=== PATIENT | male | born 1945 | race Caucasian/White ===

== ENCOUNTER 2016-04-19 22:17 | Emergency (ER) | payer MEDICARE ==
[2016-04-19] MEDS ORDERED: Aspirin Low Dose CHEW TAB* 81 MG PO ONE (22:53)
[2016-04-19] MEDS ORDERED: Iodixanol* (CONTRAST) 320 MG/ML 100 ML SDV IV ONE (23:07)
[2016-04-19] MEDS ORDERED: Morphine INJ* 4 MG/ML 1 ML CARPUJECT IV ONE (23:20)
[2016-04-19] MEDS ORDERED: Ondansetron INJ* 2 MG/ML VIAL IV ONE (23:20)
[2016-04-19 23:22] LABS: Albumin 3.4 g/dL (3.2-5.2); BUN/Creatinine Ratio 41.3 (8-20); Calcium 8.1 mg/dL (8.6-10.3); EGFR African American 132.4 (>60); Globulin 2.7 g/dL (2-4); Potassium 3.4 mmol/L (3.5-5.0); Total Bilirubin 0.4 mg/dL (0.2-1.0); Total Protein 6.1 g/dL (6.4-8.9)
[2016-04-19] MEDS ORDERED: HYDROmorphone INJ* 2 MG/ML CARPUJECT SYRINGE IV SLOW PU ONE (23:24)
[2016-04-19 23:26] LABS: Comments Flag Yes; Hematocrit 15 % (42-52); Mean Corpuscular HGB Conc 31 g/dl (31-36); Mean Corpuscular Hemoglobin 22 pg (27-31); Mean Corpuscular Volume 71 fL (80-94); Mean Platelet Volume 7 um3 (7.4-10.4); Red Blood Count 2.17 10^6/ul (4.0-5.4); Red Cell Distribution Width 18 % (10.5-15); White Blood Count 6.5 10^3/ul (3.5-10.8)
[2016-04-19 23:27] LABS: Add Diff/Slide Review? Slide Review Added; Hemoglobin 4.8 g/dl (14.0-18.0); Troponin I 0.06 ng/mL (<0.04)
[2016-04-19] MEDS ORDERED: NS 0.9% 1000 ML* 1,000 ML IV ONE (23:27)
[2016-04-19] MEDS ORDERED: Pantoprazole IV* 80 MG in NS 0.9% 250 ML* 250 ML IVPB SCH (23:45)
[2016-04-19] MEDS ORDERED: Pantoprazole IV* 40 MG IV ONE (23:46)
[2016-04-19 23:48] LABS: Hypochromasia 1+; Macrocytosis 1+; Microcytosis 1+; Polychromasia 1+; Spherocytes 1+; Target Cells 1+
[2016-04-19 23:49] LABS: Add Path Review? YES
[2016-04-20] MEDS ORDERED: Phytonadione INJ (Adult)* 10 MG/ML 1 ML AMP IV ONE (00:29)
--- NOTE | 2016-04-20 00:54 | ED ---
Arslan Martin Anna, scribed for Grover Marshall MD on 04/19/16 at 2255 . HPI Chest Pain - HPI Summary HPI Summary: Patient is a 71 y/o male coming to [facility] presenting with diffuse chest pain that began four days ago. The pain radiates to his back. Sitting down alleviates the pain somewhat. The pain is exacerbated when he stands up or walks around. It was worse today. He additionally reports SOB. He takes Vicodin for his back pain, which makes him constipated. He has been eating and drinking normally. Denies CAD, DM, HTN, HLD, stents, or bypass surgery. - History of Current Complaint Chief Complaint: EDChestPainROMI Hx Obtained From: Patient Pain Intensity: 10 Pain Scale Used: 0-10 Numeric - Allergy/Home Medications Allergies/Adverse Reactions: Allergies Allergy/AdvReac Type Severity Reaction Status Date / Time Morphine Allergy Mild Shakes Verified 04/27/12 23:13 PMH/Surg Hx/FS Hx/Imm Hx Endocrine/Hematology History: Reports: Hx Anticoagulant Therapy Cardiovascular History: Denies: Hx Coronary Artery Disease Musculoskeletal History: Reports: Other Musculoskeletal History - chronic back pain Neurological History: Reports: Hx Dementia - Surgical History Surgery Procedure, Year, and Place: tonsilectomy. steal malaika in spine. artificial heart valve Infectious Disease History: No Infectious Disease History: Denies: Hx Clostridium Difficile, Hx Hepatitis, Hx Human Immunodeficiency Virus (HIV), Hx of Known/Suspected MRSA, Hx Shingles, Hx Tuberculosis, Hx Known/ Suspected VRE, Hx Known/Suspected VRSA, History Other Infectious Disease, Traveled Outside the [place] in Last 30 Days - Family History Known Family History: Negative: Diabetes - Social History Occupation: Retired Lives: With Family Alcohol Use: None Substance Use Type: Reports: None Smoking Status (MU): Former Smoker Type: Cigarettes Amount Used/How Often: 10 years Have You Smoked in the Last Year: No Review of Systems Negative: Fever, Chills Negative: Erythema Negative: Sore Throat Positive: Chest Pain Positive: Shortness Of Breath. Negative: Cough Negative: Abdominal Pain, Vomiting, Nausea Positive: other - constipation. Negative: dysuria, hematuria Positive: Myalgia. Negative: Edema Negative: Rash Neurological: Other - Denies dizziness All Other Systems Reviewed And Are Negative: Yes Physical Exam - Summary Physical Exam Summary: Constitutional: Well-developed, Well-nourished, Alert. (-) Distressed Skin: Warm, Dry HENT: Normocephalic; Atraumatic Eyes: Conjunctiva normal Neck: Musculoskeletal ROM normal neck. (-) JVD, (-) Stridor, (-) Tracheal deviation Cardio: Rhythm regular, rate normal, Heart sounds normal; Intact distal pulses; The pedal pulses are 2+ and symmetric. Radial pulses are 2+ and symmetric. Grade 3 systolic murmur. Pulmonary/Chest wall: Effort normal. (-) Respiratory distress, (-) Wheezes, (-) Rales Abd: Soft, (-) Tenderness, ~(-) Distension, (-) Guarding, (-) Rebound Musculoskeletal: (-) Edema Lymph: (-) Cervical adenopathy Neuro: Alert, Oriented x3 Psych: Mood and affect Normal Triage Information Reviewed: Yes Vital Signs On Initial Exam: Initial Vitals Temp Pulse Resp BP Pulse Ox 98.0 F 97 26 118/76 99 04/19/16 22:38 04/19/16 22:38 04/19/16 22:38 04/19/16 22:38 04/19/16 22:38 Vital Signs Reviewed: Yes Diagnostics - Vital Signs Vital Signs Temp Pulse Resp BP Pulse Ox 04/19/16 22:38 98.0 F 97 26 118/76 99 - Laboratory Result Diagrams: 04/19/16 22:45 04/19/16 22:45 Lab Statement: Any lab studies that have been ordered have been reviewed, and results considered in the medical decision making process. - EKG 22:26 Cardiac Rate: NL - 99 bpm EKG Interpretation: RBBB, ST elevation in aVR, ST depression in V4-V6 22:46 Cardiac Rate: NL - 98 bpm EKG Rhythm: Sinus Rhythm EKG Interpretation: LBBB, no STEMI Re-Evaluation - Re-Evaluation First Eval Re-Evaluation Time: 23:47 Change: Unchanged - Discussed results and plan of care with patient. Patient agrees with plan. Second Eval Re-Evaluation Time: 00:40 Change: Improved - CP resolved at this time. BP 100 systolic. Chest Pain Course/Dx - Course Assessment/Plan: Patient is a 71 y/o male coming to [facility] presenting with diffuse chest pain that began four days ago. The pain radiates to his back. Labs reveal hemoglobin level of 4.8 and Troponin of 0.06. EKG revealed RBBB, ST elevation in aVR, and ST depression in V4-V6. CT reveals acute GI bleed. GI not available at [facility]. [facility] be [facility] under care of Dr. Gibbons. - Diagnoses Provider Diagnoses: Acute GI bleeding, Symptomatic anemia, Severe anemia - Provider Notifications Discussed Care Of Patient With: Dr. Michael (hha) at 23:22. EKG is unremarkable except for new LBBB. If concerned for CP, this could be [place]. Dr. Freeman (hospitalist) at 23:45. Pt needs to be transferred due to no GI coverage at [facility] [place] Gibbons ([facility] agrees to accept patient at 23:52. Reason For Transfer: Specialty or service not available at [facility]. - Critical Care Time Critical Care Time: 30-74 min Discharge - Discharge Plan Condition: Fair Disposition: TRANS HIGHER LVL OF CARE FAC Referrals: Chucky Wiseman MD [Primary Care Provider] - The documentation as recorded by the Arslan espinoza Anna accurately reflects the service I personally performed and the decisions made by Joanna king Jerry, MD.
[2016-04-20 01:28] VITALS: BP 96/64
--- NOTE | 2016-04-20 08:31 | RAD ---
Indication: Chest pain, aortic dissection. CTA of the chest and abdomen was performed after IV contrast administration. No oral contrast was given. A total of Administered 100.0 ml of VISAPAQUE 320 mgi/ml intravenously without adverse reaction. Coronal and sagittal reconstructed images were obtained. The ascending aorta demonstrates mild fusiform dilatation measuring up to 4.9 cm in AP dimension. Atherosclerosis and a tortuous aortic arch is noted. Descending aorta measures 3.6 cm. No evidence of aortic dissection is noted. The abdominal aorta demonstrates no evidence of aneurysmal dilatation or aortic dissection. Common iliac artery is otherwise unremarkable. The pulmonary arterial tree demonstrates no evidence of filling defects to suggest pulmonary embolus. There is precarinal lymphadenopathy measuring up to 11 mm. Right paratracheal lymph nodes are noted measuring up to 12 mm. AP window lymph nodes measuring up to 9 mm is noted. Right hilar lymph nodes measuring up to 18 mm in left hilar lymph nodes measuring up to 13 mm is noted. The lung hobbs demonstrate dependent changes in the lung bases. No evidence of alveolar consolidation is noted. No nodules are identified. CT of the abdomen was performed. The liver is normal in size. There is a low density lesion in the inferior anterior right lobe of liver measuring up to 2 cm. This is of uncertain etiology. I cannot exclude a hemangioma or cyst. Other lesions are not excluded. Correlation with ultrasound may be helpful. The spleen is normal in size. The gallbladder demonstrates no calcified gallstones, pericholecystic fluid or wall thickening. Common duct is not dilated. Pancreas demonstrates no mass or pancreatic ductal dilatation. No adrenal lesions are noted. The kidneys demonstrate symmetric nephrograms without focal lesions. No retroperitoneal lymphadenopathy is noted. No dilated loops of bowel are noted. Atherosclerotic aorta without evidence of aneurysmal dilatation is noted. Small periumbilical hernia is noted containing omentum. No evidence of bowel herniation is present. IMPRESSION: FUSIFORM DILATATION OF THE ASCENDING AORTA HOWEVER THERE IS NO EVIDENCE OF AORTIC DISSECTION. ATHEROSCLEROTIC AORTA IS NOTED. NO EVIDENCE OF PULMONARY EMBOLI IS NOTED. THERE IS A 2 CM LOW-DENSITY LESION IN THE ANTERIOR RIGHT LOBE OF LIVER IN THE INFERIOR TIP FOR WHICH FURTHER EVALUATION IS SUGGESTED SUCH HEPATIC ULTRASOUND. MILD MEDIASTINAL AND HILAR ADENOPATHY IS NOTED OF UNCERTAIN ETIOLOGY. SMALL PERIUMBILICAL HERNIA CONTAINING OMENTUM.
== END 2016-04-20 01:26 | disposition short-term general hospital (02) ==
LOC: ED 22:17
DX: K92.2 Gastrointestinal hemorrhage, unspecified (principal); D64.9 Anemia, unspecified; R07.9 Chest pain, unspecified; R06.02 Shortness of breath; Z87.891 Personal history of nicotine dependence; M79.1 Myalgia
CPT/HCPCS: 36415; 71275; 74175; 80053; 83605; 84484; 85025; 85060; 85610; 85730; 86850; 86900; 86901; 86922; 86927; 93005; 96374; 96375; 99284; A9270-GY; J1170; J2405; J3430; P9017; P9040; Q9967

== ENCOUNTER 2017-07-27 12:23 | Observation (INO) | payer MEDICARE ==
[2017-07-27] MEDS ORDERED: NS 0.9% 1000 ML* 1,000 ML IV SCH (12:30)
--- NOTE | 2017-07-27 13:29 | RAD ---
INDICATION: Shortness of breath. COMPARISON: Comparison is made with prior chest x-ray study from September 22, 2011. TECHNIQUE: A portable view of the chest was obtained. FINDINGS: The patient is status poststernotomy and cardiac valve surgery. The heart appears mildly enlarged. There is diffuse prominence of the interstitial markings and bilateral alveolar infiltrates most consistent with congestive heart failure or pneumonia. IMPRESSION: BILATERAL INTERSTITIAL AND ALVEOLAR INFILTRATES MOST CONSISTENT WITH CONGESTIVE HEART FAILURE OR PNEUMONIA.
[2017-07-27 13:39] LABS: INR 1.54 (0.77-1.02)
[2017-07-27 13:42] LABS: Hematocrit 30 % (42-52); Hemoglobin 9.9 g/dl (14.0-18.0); Mean Corpuscular HGB Conc 33 g/dl (31-36); Mean Corpuscular Hemoglobin 26 pg (27-31); Mean Corpuscular Volume 80 fL (80-94); Mean Platelet Volume 8.5 um3 (7.4-10.4); Platelet Count 202 10^3/ul (150-450); Red Blood Count 3.73 10^6/ul (4.0-5.4); Red Cell Distribution Width 18 % (10.5-15); White Blood Count 12.7 10^3/ul (3.5-10.8)
[2017-07-27 13:47] LABS: EGFR Non-African American 36.9 (>60)
[2017-07-27] MEDS ORDERED: fentaNYL* 50 MCG/ML 2 ML VIAL (100 MCG VIAL) IV SLOW PU ONE (13:57)
[2017-07-27 14:12] LABS: ABS Basophils 0 10^3/ul (0-0.2); ABS Eosinophils 0 10^3/ul (0-0.6); ABS Lymphocytes 0.8 10^3/ul (1.0-4.8); ABS Monocytes 0.8 10^3/ul (0-0.8); ABS Neutrophils 11.2 10^3/ul (1.5-7.7); ABS Nucleated RBC 0.1 10^3/ul; Eosinophil % 0 % (0-6); Lymphocyte % 5.9 % (25-47)
[2017-07-27] MEDS ORDERED: HYDROmorphone INJ* 1 MG/ML CARPUJECT SYRINGE IV ONE (15:04)
[2017-07-27] MEDS ORDERED: HYDROmorphone INJ* 2 MG/ML CARPUJECT SYRINGE IV SLOW PU ONE (15:39)
[2017-07-27] MEDS ORDERED: Ondansetron ODT TAB* 4 MG SL PRN (15:40)
[2017-07-27] MEDS ORDERED: Haloperidol INJ IV/IM* 5 MG/ML AMP IV SLOW PU PRN (15:40)
[2017-07-27] MEDS ORDERED: HYDROmorphone INJ* 2 MG/ML CARPUJECT SYRINGE IV ONE (16:00)
--- NOTE | 2017-07-27 16:07 | CONSULT ---
Consult Consult: CRITICAL CARE MEDICINE DATE: 07/27/17 TIME: 1525 PRIMARY CARE PROVIDER: Ivone REFERRING PROVIDER: Akosua REASON/CHIEF COMPLAINT: MSOF HISTORY OF PRESENT ILLNESS: 72 M with advanced dementia and from details from patients alternative proxy at bedside, pt with significant refusal of medical therapy in the distant and recent past still consistent with his rainer care. He follows with Dr. Wiseman and Dr. South has spoken with him in these regards as pt now presents from home after poor responsiveness all morning and c/o severe abd pain. Pt recently hospitalized at [facility] and sent home as he declined care. has been his anatomic pathologist it sounds like and his wishes have been multiple times to refuse care and leave ama. She declines to be his proxy at this time given pts back and forth nature as his daughter, his now current proxy because of decline, as pt when in hospital wants to go home and when at home always ill enough to return to hospital. They have never seen him this bad. Upon entering room: His eyes are closed. He looks older then age. He looks acutely ill with prolonged forced exhalation phase. He is warm but dry. He awakens and can follow a few commands but in pain. Has significant abd pain more localized to right side on exam with peritoneal signs, without invol guarding however. He is labored on 4L with sats holding. He has coarse rales on Left> Right, probably aspirated. Hr 90s. MM dry. Pupils reactive. Whne questioning him, dementia features present and does not have capacity. REVIEW OF SYSTEMS: As per HPI. PAST MEDICAL HISTORY: Reviewed with admitting hospitalist and family. MEDICATIONS: Reviewed per records. ALLERGIES: Morphine hives. SOCIAL HISTORY: . FAMILY HISTORY: Noncontributory at present. LABS: Reviewed. IMAGING: Reviewed. MEDICATIONS: Reviewed. ASSESSMENT: 72 M Septic/metabolic encephalopathy Acute hypoxic leading towards hypercarbic respiratory failure Acute abdomen and abd sepsis acting like a perforated viscous vs ischemic. Acute transaminitis. Underlying known liver mass. Acute renal failure on chronic Metabolic acidosis with lactic acidosis on admission Hyponatremia and metabolic derangement Coagulopathy Anemia. PLAN: D/w pts daughter and family members at bedside. We discussed diagnosis as above, but less confirmative given lack of CT scan. We discussed rationale of obtaining CT scan to help with dx and px. Discussed potential abd ddx and how some things could require surgery which they would decline and some things could just require medical management and we went through some specifics. She states pt and they wouldnt even want that. We did discuss his msof and risk for this hospitalization with or without medical care. He needs medication for pain currently. He will not be able to maintain resp status as his wob is quite high. His hemodynamics are going to collapse as well and his metabolic demands are increasing. She expressed understanding and speaks for him. Will start getting him comfortable. Only comfort care. Try dilaudid now. Morphine allergy with hives. May need to use if unable to satisfy or use Benadryl with if needed too. Fent prn may work for now and try that too. Ativan prn. Can remove O2 to ra when comfortable. Disposition: D/w Hospitalist, admit to floor on their service. Code Status: Comfort care Critical Care Time: 35min Ricarda Diez, DO
[2017-07-27 17:11] VITALS: BP 115/50
[2017-07-27] MEDS: fentaNYL* 50 MCG/ML 2 ML VIAL (100 MCG VIAL) IV SLOW PU PRN ×2 (18:31→19:28)
[2017-07-27] MEDS: LORazepam INJ* 2 MG/ML 1 ML VIAL IV PUSH PRN ×2 (19:28→22:53)
[2017-07-27] MEDS ORDERED: fentaNYL PCA* 20 ML PCA SCH (20:00)
--- NOTE | 2017-07-27 21:54 | HP ---
CC: Dr. Wiseman; Dr. Diez * HISTORY AND PHYSICAL: DATE OF ADMISSION: 07/27/17 PRIMARY CARE PROVIDER: Dr. Wiseman. CHIEF COMPLAINT: Abdominal pain, requested comfort care. HISTORY OF PRESENT ILLNESS: Jim Dickerson is a 72-year-old male with history of dementia, depression with psychotic features and episodes of agitation in the past, who has had problems with GI issues for the past several weeks. On , he was seen by Dr. Wiseman and was noted to have GI bleed. He came into [facility] and was supposed to have an upper endoscopy performed, but he was transferred to [facility] and eventually refused to have it performed and left against medical advice. The patient has history of arteriovenous malformations and bleeding in the past. As per family present in the room, the patient went to [facility] a couple of times more. The last time was on 07/23/17 when he complained of abdominal pain. At that point, he was noted to have a CT of the abdomen which showed thoracic aortic aneurysm at 6 cm and 2.5 cm of liver mass as well as a mass in the spleen. The family stated that he got angry and decided not to be admitted and requested for the family to take him back home. Family also mentioned that the patient has history of "water on the lungs." Apparently after coming back home from the hospital, he had been feeling more ill and complaining of more abdominal pain. Several times in the past several weeks, he had voiced to the family that he prefers to and he does not want to come to the hospital anymore. Today, the patient was brought in by ambulance crew who noted that the patient was moaning in pain with labored breathing. The family wanted to place the patient in hospice care at that point. He came into the emergency department with the family requesting comfort care. We had some basic lab work obtained which shows multiorgan system failure, shock liver with marked metabolic acidosis and acute renal failure, and hyponatremia. I spoke with the family that the patient will require to have a CAT scan done to evaluate for possibility of abdominal pathology and likely ischemic bowel or perforation. The patient's healthcare proxy present in the room, his daughter, Corrine, stated that the patient would never wish to have that done and she refused for the patient to have the CAT scan performed. I also attempted to contact the patient's , Tara Dickerson, who was not available. The patient's family stated that Tara did not come to the hospital since she did not want to deal with the hospitals anymore and that she agreed with the comfort care orders. I also discussed the case with Dr. Wiseman, patient's primary care provider who thought that the patient does not have a diagnosis of terminal illness. Nevertheless, after discussion with Dr. Diez at this point when the patient has multiorgan failure, his mortality is high. At this point, the patient's family and healthcare proxies requested for the patient to be placed comfort care. The working diagnosis is likely bowel perforation or ischemic bowel. The patient is going to be placed on comfort care orders only according to the family's wishes. PAST MEDICAL HISTORY: Obtained from medical records as the patient is nonverbal , includes: 1. Status post aortic valve replacement x2. 2. History of major depressive disorder with psychotic features and agitation in the past. 3. History of dementia. 4. History of hypercholesterolemia. 5. History of acoustic neuroma. 6. BPH. 7. History of AVMs and GI bleeds due to that. 8. History of chronic lower back pain. 9. History of ulcerative colitis. 10. History of coronary artery bypass grafting. 11. History of seizure disorder. 12. History of breast surgery in the past and I believe that was a fine needle aspiration of an abnormality on the breast that turned out to be benign. MEDICATIONS: At home include: 1. Senna 2 tablets daily. 2. Seroquel 100 mg at bedtime. 3. MiraLAX 17 g daily. 4. Remeron 30 mg at bedtime. 5. Lamictal 200 mg at bedtime. 6. Hydrocodone/acetaminophen 5/325 mg 1 tablet every 4 hours p.r.n. 7. Ferrous sulfate 325 mg daily. 8. Pepcid 40 mg daily. 9. Soma 350 mg 3 times a day p.r.n. 10. Aspirin 325 mg daily. FAMILY HISTORY: Father with history of heart disease. Sister with history of melanoma and metastasis. One child with Tourette's. SOCIAL HISTORY: The patient has a history of [id number] smoking, quit in 1976. There is no history of alcohol or drug use. REVIEW OF SYSTEMS: Unobtainable from the patient. From the patient's family members, the patient had been complaining of abdominal pain for several weeks now. He has not eaten anything today. He had been moaning for the past 2 days. He did not wish to be in the hospital anymore and he did not wish to be further treated as per patient's family members. Apparently, he has not had a bowel movement for several days. PHYSICAL EXAMINATION GENERAL: The patient is a 72-year-old male who is lying in bed, appears uncomfortable, moaning all the time. He is otherwise nonverbal. VITAL SIGNS: Blood pressure of 119/59, heart rate of 80 and regular, respiratory rate 25, oxygen saturation 95% on 4 L of oxygen nasal cannula, temperature 98.1. HEENT: Head: Atraumatic, normocephalic. Eyes: Pupils are equal and reactive to light and accommodation. Oropharynx clear. Mucosa dry. NECK: Supple. No JVD. No bruits bilaterally. RESPIRATORY: Rales in bilateral lower to mid lungs. CARDIOVASCULAR: Regular rate and rhythm with 2/6 systolic ejection murmur noted on auscultation of the right upper sternal border. ABDOMEN: Very protuberant, markedly distended. Soft, markedly tender in the right upper and right lower quadrants with no rebound, no guarding. Bowel sounds are very hypoactive and high pitched noted in the bilateral upper quadrants of the abdomen. EXTREMITIES: There is +2 pitting pedal edema bilaterally. There is no clubbing and no cyanosis. NEURO EVALUATION: The patient is currently nonverbal, encephalopathic, moaning from pain. He moves all his 4 extremities spontaneously without evidence of focal abnormality. DIAGNOSTIC STUDIES/LAB DATA: Showed lactic acid of 2.8. Sodium of 125, potassium 5.3, chloride 90, carbon dioxide 20, BUN 97, creatinine 1.87. Anion gap was 15. Glucose of 130. Total bilirubin of 2.2, AST of 683, ALT of 686, alkaline phosphatase of 382. Troponin of 0.13. Brain natriuretic peptide was 1494. Total CPK of 558. C-reactive protein of 296. TSH of 2.2. White blood cell count 12.7, hemoglobin 9.9, hematocrit 30, and platelets 202,000. Portable chest x-ray showed "bilateral interstitial and alveolar infiltrates most consistent with congestive heart failure or pneumonia." ASSESSMENT AND PLAN: 1. The patient appears to be in multiorgan system failure with high mortality at this point. Due to the patient's history of dementia and behavioral disturbances and worsening memory in the past several months to years, the present healthcare proxy, his daughter, Corrine, requested for the patient to be comfort care. Corrine and her present in the room requested for the patient not to have further investigations including CAT scan of the abdomen. At this point, the differential of the patient's underlying pathology is likely bowel ischemia or bowel perforation, for which further consent would have to be obtained for possibility of surgical intervention which the family would not consent to. At this point after consulting the rn bsn, Dr. Diez, the patient is going to be placed on comfort care orders utilizing fentanyl, atropine for comfort orders. I am going to ask [facility] consultant, Dr. Malik , to see the patient for further evaluation in the future. 2. For DVT prophylaxis, the patient is on comfort care orders only. 3. The patient's code status is do not resuscitate, do not intubate, and comfort care. TIME SPENT: Approximately 85 minutes were spent on admission of this patient, more than half that time was spent [id number] with the patient and the patient 's family in the patient's room, managing the patient's complicated case. [id number] #: [id number]
--- NOTE | 2017-07-27 22:54 | ED ---
Jessica Martin Nilda, scribed for Ajit Vargas MD on 07/27/17 at 1256 . Altered Mental Status - HPI Summary HPI Summary: LVL 5 Caveat: Hx and PE limited due to Dementia and AMS. This patient is a 72 year old M presenting to [facility] accompanied by EMS with a chief complaint of constant AMS since yesterday that worsened today, per EMS. Pt was D/C from [facility] 4 days ago. Pt has extensive cardiac Hx as well as CVA, internal bleeding, and Dementia, per EMS and daughter. Per EMS, pt had difficulty ambulating yesterday and this morning pt has been constantly moaning and groaning. Daughter reports loss of appetite, edema, and pain. Symptoms aggravated and alleviated by nothing. Daughter states the goal today is comfort care and alleviating pain. 9,900 BNP lab a couple days ago. Healthcare proxy is . - History Of Current Complaint Chief Complaint: EDAltMentalStatus Stated Complaint: AMS Time Seen by Provider: 07/27/17 12:29 Hx Obtained From: Family/Postal Sorting Officer - daughter, EMS Onset/Duration: Still Present Timing: Constant, Lasting Days Character: Confusion Aggravating Factor(s): Nothing Alleviating Factor(s): Nothing - Allergies/Home Medications Allergies/Adverse Reactions: Allergies Allergy/AdvReac Type Severity Reaction Status Date / Time morphine Allergy Shakes Verified 07/27/17 12:35 Home Medications: Home Medications Aspirin TAB* [Aspirin 325 MG TAB*] 325 mg PO DAILY 07/27/17 [History Confirmed 07/27/17] Carisoprodol TAB* [Soma TAB*] 350 mg PO TID PRN 07/27/17 [History Confirmed 10/07] Famotidine TAB* [Pepcid 20 MG TAB*] 40 mg PO DAILY 07/27/17 [History Confirmed 07/27/17] Ferrous Sulfate TAB* 325 mg PO DAILY 07/27/17 [History Confirmed 07/27/17] HYDROcodone/ACETAMIN 5-325 MG* [Stout 5-325 TAB*] 1 tab PO Q4H PRN 07/27/17 [ History Confirmed 07/27/17] Mirtazapine TAB* [Remeron TAB*] 30 mg PO BEDTIME 07/27/17 [History Confirmed 10/07] Polyethylene Glycol 3350* [Miralax*] 17 gm PO DAILY 07/27/17 [History Confirmed 07/27/17] QUEtiapine TAB* [SEROquel TAB*] 100 mg PO BEDTIME 07/27/17 [History Confirmed ] Senna TAB* [Senokot TAB*] 2 tab PO DAILY 07/27/17 [History Confirmed 07/27/17] lamoTRIgine TAB(*) [LaMICtal TAB(*)] 200 mg PO BEDTIME 07/27/17 [History Confirmed 07/27/17] PMH/Surg Hx/FS Hx/Imm Hx Endocrine/Hematology History: Reports: Hx Anticoagulant Therapy Cardiovascular History: Denies: Hx Coronary Artery Disease Musculoskeletal History: Reports: Other Musculoskeletal History - chronic back pain Neurological History: Reports: Hx Dementia - Surgical History Surgery Procedure, Year, and Place: tonsilectomy. steal malaika in spine. artificial heart valve Infectious Disease History: No Infectious Disease History: Denies: Hx Clostridium Difficile, Hx Hepatitis, Hx Human Immunodeficiency Virus (HIV), Hx of Known/Suspected MRSA, Hx Shingles, Hx Tuberculosis, Hx Known/ Suspected VRE, Hx Known/Suspected VRSA, History Other Infectious Disease, Traveled Outside the [place] in Last 30 Days - Family History Known Family History: Negative: Diabetes - Social History Alcohol Use: None Substance Use Type: Reports: None Smoking Status (MU): Former Smoker Type: Cigarettes Amount Used/How Often: 10 years Have You Smoked in the Last Year: No Review of Systems - ROS Summary Review of Systems Summary: LVL 5 Caveat: Hx and PE limited due to Dementia and AMS. Positive: Other - loss of appetite Positive: Edema, Other - pain Neurological: Other - AMS, difficulty ambulating, moaning, groaning All Other Systems Reviewed And Are Negative: No Physical Exam - Summary Physical Exam Summary: Skin: warm, color reflects adequate perfusion, dry Head: normal Respiratory:crackles bilat Cardiovascular: RRR Bowel sounds: present Musculoskeletal: bilat pedal edema Neurological: Unintelligible noises. No words (which is baseline). Triage Information Reviewed: Yes Vital Signs On Initial Exam: Initial Vitals Temp Pulse Resp BP Pulse Ox 98.1 F 80 25 119/59 95 07/27/17 12:27 07/27/17 12:27 07/27/17 12:27 07/27/17 12:27 07/27/17 12:27 Vital Signs Reviewed: Yes Completion Of Physical Exam Limited Due To: Level 5 - LVL 5 Caveat: Hx and PE limited due to Dementia and AMS. Diagnostics - Vital Signs Vital Signs Temp Pulse Resp BP Pulse Ox 07/27/17 12:27 98.1 F 80 25 119/59 95 - Laboratory Lab Results: Lab Results 07/27/17 07/27/17 07/27/17 Range/Units 13:15 13:15 13:15 WBC 12.7 H (3.5-10.8) 10^3/ul RBC 3.73 L (4.0-5.4) 10^6/ul Hgb 9.9 L (14.0-18.0) g/dl Hct 30 L (42-52) % MCV 80 (80-94) fL MCH 26 L (27-31) pg MCHC 33 (31-36) g/dl RDW 18 H (10.5-15) % Plt Count 202 (150-450) 10^3/ul MPV 8.5 (7.4-10.4) um3 Neut % (Auto) 88.0 H (38-83) % Lymph % (Auto) 5.9 L (25-47) % [place] % (Auto) 6.0 (0-7) % Eos % (Auto) 0 (0-6) % Baso % (Auto) 0.1 (0-2) % Absolute Neuts (auto) 11.2 H (1.5-7.7) 10^3/ul Absolute Lymphs (auto) 0.8 L (1.0-4.8) 10^3/ul Absolute Monos (auto) 0.8 (0-0.8) 10^3/ul Absolute Eos (auto) 0 (0-0.6) 10^3/ul Absolute Basos (auto) 0 (0-0.2) 10^3/ul Absolute Nucleated RBC 0.1 10^3/ul Nucleated RBC % 1.0 INR (Anticoag Therapy) (0.77-1.02) APTT (26.0-36.3) seconds D-Dimer, Quantitative (Less Than 230) ng/mL VBG pH (7.33-7.43) VBG pCO2 (41-51) mmHg VBG pO2 (35-45) mmHg VBG HCO3 (24-28) mmol/L VBG O2 Saturation (70-80) % VBG Base Excess (0-4) Carbon Monoxide Screen (<4.0) % Sodium 125 L (139-145) mmol/L Potassium 5.3 H (3.5-5.0) mmol/L Chloride 90 L (101-111) mmol/L Carbon Dioxide 20 L (22-32) mmol/L Anion Gap 15 H (2-11) mmol/L BUN 97 H (6-24) mg/dL Creatinine 1.82 H (0.67-1.17) mg/dL Est GFR ( Amer) 47.5 (>60) Est GFR (Non-Af Amer) 36.9 (>60) BUN/Creatinine Ratio 53.3 H (8-20) Glucose 130 H (70-100) mg/dL Lactic Acid (0.5-2.0) mmol/L Calcium 8.4 L (8.6-10.3) mg/dL Magnesium 3.3 H (1.9-2.7) mg/dL Total Bilirubin 2.20 H (0.2-1.0) mg/dL AST 683 H (13-39) U/L ALT 686 H (7-52) U/L Alkaline Phosphatase 382 H (34-104) U/L Ammonia 51 (16-53) mcmol/L Total Creatine Kinase 558 H (10-223) U/L CK-MB (CK-2) 24.4 H (0.6-6.3) ng/mL Troponin I 0.13 H* (<0.04) ng/mL C-Reactive Protein 296.46 H (< 5.00) mg/L B-Natriuretic Peptide 1494 H ( - 100) pg/mL Total Protein 6.5 (6.4-8.9) g/dL Albumin 3.2 (3.2-5.2) g/dL Globulin 3.3 (2-4) g/dL Albumin/Globulin Ratio 1.0 (1-3) Lipase 17 (11.0-82.0) U/L TSH 2.20 (0.34-5.60) mcIU/mL Salicylates < 2.50 (<30) mg/dL Acetaminophen < 15 mcg/mL Serum Alcohol < 10 (<10) mg/dL 07/27/17 07/27/17 07/27/17 Range/Units 13:15 13:16 13:16 WBC (3.5-10.8) 10^3/ul RBC (4.0-5.4) 10^6/ul Hgb (14.0-18.0) g/dl Hct (42-52) % MCV (80-94) fL MCH (27-31) pg MCHC (31-36) g/dl RDW (10.5-15) % Plt Count (150-450) 10^3/ul MPV (7.4-10.4) um3 Neut % (Auto) (38-83) % Lymph % (Auto) (25-47) % [place] % (Auto) (0-7) % Eos % (Auto) (0-6) % Baso % (Auto) (0-2) % Absolute Neuts (auto) (1.5-7.7) 10^3/ul Absolute Lymphs (auto) (1.0-4.8) 10^3/ul Absolute Monos (auto) (0-0.8) 10^3/ul Absolute Eos (auto) (0-0.6) 10^3/ul Absolute Basos (auto) (0-0.2) 10^3/ul Absolute Nucleated RBC 10^3/ul Nucleated RBC % INR (Anticoag Therapy) 1.54 H (0.77-1.02) APTT 26.9 (26.0-36.3) seconds D-Dimer, Quantitative > 1050 H (Less Than 230) ng/mL VBG pH 7.34 (7.33-7.43) VBG pCO2 32 L (41-51) mmHg VBG pO2 30 L (35-45) mmHg VBG HCO3 18.1 L (24-28) mmol/L VBG O2 Saturation 51.5 L (70-80) % VBG Base Excess -7.5 L (0-4) Carbon Monoxide Screen < 4 (<4.0) % Sodium (139-145) mmol/L Potassium (3.5-5.0) mmol/L Chloride (101-111) mmol/L Carbon Dioxide (22-32) mmol/L Anion Gap (2-11) mmol/L BUN (6-24) mg/dL Creatinine (0.67-1.17) mg/dL Est GFR ( Amer) (>60) Est GFR (Non-Af Amer) (>60) BUN/Creatinine Ratio (8-20) Glucose (70-100) mg/dL Lactic Acid 2.8 H* (0.5-2.0) mmol/L Calcium (8.6-10.3) mg/dL Magnesium (1.9-2.7) mg/dL Total Bilirubin (0.2-1.0) mg/dL AST (13-39) U/L ALT (7-52) U/L Alkaline Phosphatase (34-104) U/L Ammonia (16-53) mcmol/L Total Creatine Kinase (10-223) U/L CK-MB (CK-2) (0.6-6.3) ng/mL Troponin I (<0.04) ng/mL C-Reactive Protein (< 5.00) mg/L B-Natriuretic Peptide ( - 100) pg/mL Total Protein (6.4-8.9) g/dL Albumin (3.2-5.2) g/dL Globulin (2-4) g/dL Albumin/Globulin Ratio (1-3) Lipase (11.0-82.0) U/L TSH (0.34-5.60) mcIU/mL Salicylates (<30) mg/dL Acetaminophen mcg/mL Serum Alcohol (<10) mg/dL Result Diagrams: 07/27/17 13:15 07/27/17 13:15 Lab Statement: Any lab studies that have been ordered have been reviewed, and results considered in the medical decision making process. - Radiology CXR Radiology Interpretation Completed By: Radiologist - CXR reveals BILATERAL INTERSTITIAL AND ALVEOLAR INFILTRATES MOST CONSISTENT WITH CONGESTIVE HEART FAILURE OR PNEUMONIA. Dr. Vargas has reviewed this radiology report. - EKG 1233 Cardiac Rate: NL - 79 bpm EKG Rhythm: Sinus Rhythm ST Segment: Normal EKG Interpretation: prolonged NJ interval at 214. LBBB Re-Evaluation - Re-Evaluation First Eval Re-Evaluation Time: 13:59 Comment: Reviewed pain managment plan and admission plan with family. Altered Mental Statu Course/Dx - Course Course Of Treatment: LVL 5 Caveat: Hx and PE limited due to Dementia and AMS. Medications reviewed. INITIATED AMS WORKUP. THE FAMILY WISHES ONLY COMFORT CARE. ADMIT HOSPITALIST. CRITICAL CARE TIME LESS THAN 30 MINUTES. - Diagnoses Provider Diagnoses: Altered mental state, Abdominal pain, Comfort measures only status - Provider Notifications Discussed Care Of Patient With: Porsha [facility] - Hospitalist Time Discussed With Above Provider: 13:11 Instructed by Provider To: Admit As Inpatient Discharge - Sign-Out/Discharge Documenting (check all that apply): Discharge/Admit/Transfer - Discharge Plan Condition: Guarded Disposition: ADMITTED TO [facility] - Billing Disposition and Condition Condition: GUARDED Disposition: [facility] The documentation as recorded by the Jessica espinoza Nilda accurately reflects the service I personally performed and the decisions made by me, Ajit Vargas MD.
[2017-07-28] MEDS: LORazepam INJ* 2 MG/ML 1 ML VIAL IV PUSH PRN ×3 (01:18→08:43)
[2017-07-28] MEDS: fentaNYL PCA* 20 ML PCA SCH ×2 (03:10→07:16)
[2017-07-28] MEDS: Atropine 1% (ORAL/SL)* 15 ML BTL SL PRN ×3 (06:35→10:59)
[2017-07-28] MEDS: fentaNYL* 50 MCG/ML 2 ML VIAL (100 MCG VIAL) IV SLOW PU PRN ×2 (07:32→08:43)
[2017-07-28] MEDS ORDERED: Scopolamine 1.5 mg* PATCH TRANSDERM SCH (08:00)
--- NOTE | 2017-07-29 15:50 | DS ---
CC: Dr. Wiseman; Dr. Diez; Dr. Huang * DISCHARGE/ SUMMARY: DATE OF ADMISSION: 07/27/17 DATE/TIME OF : 07/28/17 at 11:10 a.m. PRIMARY CARE PROVIDER: Dr. Wiseman. CAUSE OF : Multi-organ system failure likely due to suspected bowel perforation. SECONDARY DIAGNOSES: 1. History of recurrent gastrointestinal bleed, for which the patient refused evaluation recently but has a history of diagnosed arterial venous malformations in the past. 2. History of aortic valve replacement. 3. History of major depression with psychotic features and agitation in the past. 4. History of mild dementia. 5. History of aortic valve replacement x2. HOSPITALIZATION COURSE: Jim Dickerson was a 72-year-old male who presented to the hospital nonverbal, in acute distress with acute abdomen symptoms on 07/27/17. The patient's family and 2 healthcare proxies, which were his daughter and his were present at the patient's admission and requested for the patient's to be comfort care. The patient apparently had suffered from worsening memory issues and episodes of agitation. He has had abdominal pain for several months now and every time he would go to [facility] for evaluation, he would either refuse to be admitted or sign against medical advice. I requested Dr. Diez from Intensive Care to see the patient in evaluation. At this point , the patient was noted to have elevation of liver function tests, elevation of troponin as well as acute renal failure, and lactic acidosis. His mortality at the time of admission was rather high. Due to that and due to the fact that the patient's healthcare proxies were both requesting comfort care and refusing any further evaluation including abdominal CT, the patient was placed on comfort care. He was placed on fentanyl as needed then later on was converted to fentanyl drip due to discomfort present still when on fentanyl p.r.n. The patient was pronounced on 07/28/17 at 11:10 a.m. At that time, he was noted to have no spontaneous respirations or heartbeat. His skin was pale and cool. His pupils were wide and nonreactive. He was unresponsive to all stimuli. The patient's family was present by the bedside and did not want an autopsy done. Due to that, the patient was within 24 hours of this hospital stay. Dr. Huang from pathology was notified and released the [facility]. Please note that this is a short summary of the patient's hospitalization. Please refer to further medical records for details. TIME SPENT: Approximately 40 minutes was spent on patient's discharge. [id number]/[facility] #: [id number] MTDD
== END 2017-07-28 11:10 | disposition expired ==
LOC: ED 12:23 → MED 15:43
PROVIDERS: ADMIT Internal Medicine; ATTEND Internal Medicine
DX: G93.41 Metabolic encephalopathy (principal); N17.9 Acute kidney failure, unspecified; R41.82 Altered mental status, unspecified; E87.2 Acidosis; E87.1 Hypo-osmolality and hyponatremia; R10.9 Unspecified abdominal pain; D68.9 Coagulation defect, unspecified; D64.9 Anemia, unspecified; R63.0 Anorexia; Z87.891 Personal history of nicotine dependence; Z95.5 Presence of coronary angioplasty implant and graft; Z95.2 Presence of prosthetic heart valve; Z86.59 Personal history of other mental and behavioral disorders; Z79.82 Long term (current) use of aspirin; J96.01 Acute respiratory failure with hypoxia; R74.0 Nonspecific elevation of levels of transaminase and lactic acid dehydrogenase [LDH]
CPT/HCPCS: 36415; 71045; 80053; 80320; 80329; 82140; 82375; 82550; 82553; 82803; 83605; 83690; 83735; 83880; 84443; 84484; 85025; 85379; 85610; 85730; 86140; 87040; 93005; 96374; 96375; 99284; A9270-GY; G0378; G0480; J1170; J2060; J3010